=== PATIENT | female | born 1985 | race Two or more races ===

== ENCOUNTER 2018-12-09 10:18 | Outpatient (CLI) | payer OTHER | END 2018-12-09 10:43 | disposition home or self-care (01) | LOC: LAB 10:18 | DX: J11.1 Influenza due to unidentified influenza virus with other respiratory manifestations (principal); J06.9 Acute upper respiratory infection, unspecified ==

== ENCOUNTER 2019-12-11 13:25 | Emergency (ER) | payer OTHER ==
[~2019-12-11] VITALS: Ht 152.4 cm; Wt 59.0 kg
[2019-12-11] MEDS ORDERED: SINGULAIR 10MG10 MG PO (13:49)
== END 2019-12-11 15:27 | disposition home or self-care (01) ==
LOC: ER 13:25
DX: L02.424 Furuncle of left upper limb (principal)